=== PATIENT | female | born 1990 | race Caucasian/White ===

== ENCOUNTER 2021-01-17 10:27 | Observation (INO) ==
[2021-01-17 11:12] LABS: Basophils % 0.5 %; Eosinophils # 0.1 K/mcL (0.0-0.6); Eosinophils % 1.3 %; Hematocrit 37.7 % (35.3-44.9); Hemoglobin 12.1 g/dL (11.5-15.4); Immature Granulocytes % 0.9 % (0-4); Lymphocytes # 1.9 K/mcL (0.6-4.6); Lymphocytes % 24.1 %; Mean Corpuscular HGB Conc 32.1 g/dL (31.6-35.5); Mean Corpuscular Hemoglobin 28.1 pg (28.0-33.3); Mean Corpuscular Volume 87.7 fL (83.0-100.0); Mean Platelet Volume 10.7 fL (9.4-12.4); Monocytes # 0.5 K/mcL (0.0-1.3); Monocytes % 6.4 %; Neutrophils # 5.3 K/mcL (1.6-8.9); Platelet Count 217 K/mcL (140-400); Red Cell Distribution Width 14.9 % (11.5-14.5); Segmented Neutrophils % 66.8 %; White Blood Count 7.9 K/mcL (4.3-11.1)
[2021-01-17 11:37] LABS: Protein/Creatinine Ratio,Urine 0.13 mg/mg (0.00-0.20)
[2021-01-17 11:53] LABS: Alanine Aminotransferase 12 Units/L (7-52); Aspartate Amino Transferase 14 Units/L (13-39); BUN/Creatinine Ratio 13 (6-26); Blood Urea Nitrogen 7 mg/dL (6-20); Uric Acid 4.9 mg/dL (2.3-7.6); eGFR For African Americans > 60 (> 60); eGFR For Non-African Americans > 60 (> 60)
[2021-01-17 15:20] LABS: Lactate Dehydrogenase 161 Units/L (140-271)
== END 2021-01-17 12:14 | disposition home or self-care (01) ==
LOC: 1NENULAB
PROVIDERS: ADMIT Advanced Practice Midwife; ATTEND Advanced Practice Midwife

== ENCOUNTER 2021-01-20 11:34 | Inpatient (IN) ==
[~2021-01-20 11:34] MED LIST: *HR* Nalbuphine 10 MG/ML AMPUL IV PRN; Famotidine 20 MG/2 ML VIAL IVP PRN; Naloxone 0.4 MG/ML INJ IVP PRN; Ondansetron 4 MG/2 ML VIAL IVP PRN
[2021-01-20] MEDS ORDERED: Ringers Solution, Lactated 1,000 ML IVC SCH (11:45)
[2021-01-20 12:00] LABS: Basophils % 0.4 %; Eosinophils # 0.1 K/mcL (0.0-0.6); Eosinophils % 0.8 %; Hematocrit 34.4 % (35.3-44.9); Hemoglobin 11.5 g/dL (11.5-15.4); Immature Granulocytes % 0.9 % (0-4); Lymphocytes % 21.4 %; Mean Corpuscular HGB Conc 33.4 g/dL (31.6-35.5); Mean Corpuscular Volume 86.6 fL (83.0-100.0); Monocytes # 0.7 K/mcL (0.0-1.3); Neutrophils # 6.2 K/mcL (1.6-8.9); Platelet Count 227 K/mcL (140-400); Red Blood Count 3.97 M/mcL (3.82-4.97); Red Cell Distribution Width 14.9 % (11.5-14.5); Segmented Neutrophils % 68.5 %; White Blood Count 9.1 K/mcL (4.3-11.1)
[2021-01-20] MEDS ORDERED: miSOPROStoL 25 MCG TABLET PO ONE (12:08)
[2021-01-20 12:09] LABS: Protein/Creatinine Ratio,Urine 0.19 mg/mg (0.00-0.20)
[2021-01-20 12:20] LABS: Alanine Aminotransferase 11 Units/L (7-52); Aspartate Amino Transferase 13 Units/L (13-39); BUN/Creatinine Ratio 14 (6-26); Blood Urea Nitrogen 7 mg/dL (6-20); Lactate Dehydrogenase 161 Units/L (140-271); Uric Acid 4.4 mg/dL (2.3-7.6); eGFR For African Americans > 60 (> 60); eGFR For Non-African Americans > 60 (> 60)
[2021-01-20] MEDS ORDERED: Acetaminophen 325 MG TABLET PO ONE (12:39)
[2021-01-20 13:07] LABS: Glucose 100 mg/dL (70-105)
[2021-01-20 13:28] LABS: Amphetamine Screen,Urine Negative ng/mL (Cutoff=1000); Barbiturate Screen,Urine Negative ng/mL (Cutoff=200); Benzodiazepines Screen,Urine Negative ng/mL (Cutoff=200); Cannabinoid Screen,Urine Negative ng/mL (Cutoff = 50); Cocaine Screen,Urine Negative ng/mL (Cutoff= 300); Opiate Screen,Urine Negative ng/mL (Cutoff=300); Phencyclidine Screen,Urine Negative ng/mL (Cutoff=25)
[2021-01-20] MEDS ORDERED: Oxytocin 20 units/ LR 1000 mL 20 UNIT/1,000 ML BAG IVC SCH (16:30)
[2021-01-20] MEDS ORDERED: EPHEDrine 50 MG/ML VIAL IVP PRN (16:49)
[2021-01-20] MEDS ORDERED: Epidural Premix (fent/bupiv) 110 ML EP ONE (16:54)
[2021-01-20] MEDS ORDERED: Epidural Premix (fent/bupiv) 110 ML EP SCH (17:00)
[2021-01-21] MEDS ORDERED: Lanolin 7 G OINT...G. TP PRN (02:42)
[2021-01-21] MEDS ORDERED: Oxytocin 20 units/ LR 1000 mL 20 UNIT/1,000 ML BAG IVC SCH (02:42)
[2021-01-21] MEDS ORDERED: Ondansetron ODT 4 MG TAB.RAPDIS SL PRN (02:42)
[2021-01-21] MEDS ORDERED: Benzocaine/Menthol 56 GM AEROSOL SPRAY TP PRN (02:42)
[2021-01-21] MEDS: Ibuprofen 600 MG TABLET PO SCH (03:20)
[2021-01-21] MEDS: Prenatal Vit/FA 1 EACH TABLET PO SCH (07:49)
[2021-01-21] MEDS: Acetaminophen 325 MG TABLET PO SCH ×2 (07:49→20:15)
[2021-01-22] MEDS: Ibuprofen 600 MG TABLET PO SCH ×2 (00:07→09:35)
[2021-01-22 01:17] VITALS: O2SAT 97
[2021-01-22 09:09] VITALS: BP 136/95; PULSE 92; TEMP 98.8
[2021-01-22] MEDS: Prenatal Vit/FA 1 EACH TABLET PO SCH (09:35)
== END 2021-01-22 12:30 | disposition home or self-care (01) | DRG 560 ==
LOC: 1NENULAB → 1NENUOBS 01-21 02:37
PROVIDERS: ADMIT Obstetrics & Gynecology; ATTEND Obstetrics & Gynecology